=== PATIENT | male | born 1975 | race Two or more races ===

== ENCOUNTER 2019-04-18 10:53 | Day surgery (SDC) | payer OTHER ==
[~2019-04-18 10:53] MED LIST: Buffered Lidocaine 1% SYRIN* 1 ML/SYRINGE INTRADERM ONE; Dexamethasone TAB* 4 MG PO ONE; DiMENhydriNATE IV* 50 MG/ML VIAL IV PUSH PRN; Famotidine IV* 10 MG/ML 2 ML (20 mg) IV ONE; HYDROmorphone INJ1* 1 MG/ML SYRINGE IV PRN; Lactated Ringers 1000 ML Bag* 1,000 ML IV SCH; Naloxone* 0.4 MG/ML 1 ML VIAL IV PRN; Ondansetron ODT TAB* 4 MG PO ONE; PROCHLORPERAZINE INJ 5 MG/ML 2 ML VIAL IV PRN; fentaNYL* 50 MCG/ML 2 ML VIAL (100 MCG VIAL) IV PRN; oxyCODONE TAB* 5 MG TAB PO PRN
[2019-04-18] MEDS ORDERED: Dexamethasone TAB* 4 MG ONE (11:14)
[2019-04-18] MEDS ORDERED: Famotidine IV* 10 MG/ML 2 ML (20 mg) ONE (11:14)
[2019-04-18] MEDS ORDERED: Ondansetron ODT TAB* 4 MG ONE (11:14)
[2019-04-18] MEDS ORDERED: Buffered Lidocaine 1% SYRIN* 1 ML/SYRINGE INTRADERM ONE (11:14)
[2019-04-18] MEDS ORDERED: Midazolam* 1 MG/ML 5 ML VIAL (5 MG) ONE (11:20)
[2019-04-18] MEDS ORDERED: Lidocaine 2% PF * 5 ML VIAL ONE (11:20)
[2019-04-18] MEDS ORDERED: Propofol* 10 MG/ML 20 ML BTL ONE (11:20)
[2019-04-18] MEDS ORDERED: fentaNYL* 50 MCG/ML 2 ML VIAL (100 MCG VIAL) ONE (11:20)
[2019-04-18] MEDS ORDERED: Oxymetazoline 0.05% NASAL SPR* 15 ML BTL ONE (11:51)
[2019-04-18] MEDS ORDERED: Ibuprofen TAB* 400 MG ONE (12:48)
[2019-04-18 13:44] VITALS: BP 140/87
--- NOTE | 2019-04-19 02:58 | OP ---
DATE OF OPERATION: 04/18/19 - [facility] DATE OF : 73 SURGEON: Lisandro Belle MD. PRE-OP DIAGNOSIS: Nasal fracture with depressed nasal bone and nasal dyspnea. POST-OP DIAGNOSIS: Nasal fracture with depressed nasal bone and nasal dyspnea. OPERATIVE PROCEDURE: Closed reduction of nasal fracture with nasal splinting. INDICATION: This 44-year-old gentleman struck his nose working out, had depressed nasal bone. Attempt at adequate closed reduction in the office was not successful for cosmetic and nasal breathing difficulties. The patient elected for having it done in the operating room. DESCRIPTION OF PROCEDURE: The patient was taken to the operating room, the patient intubated with LMA. The nose was decongested and Afrin pledgets placed. Haseeb elevator was used to reduce the nose. A small Merocel pack was placed to keep the left lateral nasal bone lateralized. Nasal splint was then applied. The patient was then awakened, sent to recovery room in stable condition. Instrument and sponge count correct. Blood loss minimal. [id number]/[facility] #: [id number] MTDD
== END 2019-04-18 13:55 | disposition home or self-care (01) ==
LOC: OR 10:53
PROVIDERS: ATTEND Otolaryngology
DX: S02.2XXA Fracture of nasal bones, initial encounter for closed fracture (principal); J34.2 Deviated nasal septum; W22.8XXA Striking against or struck by other objects, initial encounter; Y93.B9 Activity, other involving muscle strengthening exercises; Y92.9 Unspecified place or not applicable
CPT/HCPCS: A9270-GY; J2250; J2704; J3010; J8540